=== PATIENT | male | born 1940 | race Caucasian/White ===

== ENCOUNTER 2016-10-26 11:22 | Emergency (ER) | payer MEDICARE ==
[~2016-10-26] VITALS: Ht 154.9 cm; Wt 77.5 kg
[~2016-10-26 11:22] MED LIST: AMOX-291 PO; ASPI-621 PO; ATOR10TA9 PO; FINA5TAB4 PO; GLYC1SUP71 PR; ISOS30TA8 PO; LOSA50TA6 PO; OXYC-302 PO; PHEN-418 PO; SULF1TAB3 PO; [UNRECOGNIZED DRUG - REMARK] PO
[2016-10-26 11:35] VITALS: BP 155/81
[2016-10-26] MEDS ORDERED: KETOROLAC 30 MG/1 ML IM ONE (12:00)
[2016-10-26 12:07] LABS: HEMATOCRIT 37.4 % (39.2-51.8); HEMOGLOBIN 12.8 g/dL (13.7-18.0); WHITE BLOOD COUNT 7.8 x10^3/uL (3.4-10)
[2016-10-26 12:19] LABS: BLOOD UREA NITROGEN 13 mg/dL (7-18)
[2016-10-26] MEDS ORDERED: KETOROLAC 30 MG/1 ML ONE (12:29)
== END 2016-10-26 13:20 | disposition home or self-care (01) ==
LOC: ED 13:16
DX: M25.532 Pain in left wrist (principal); R73.9 Hyperglycemia, unspecified
CPT/HCPCS: 29125; 36415; 73110; 80048; 82040; 84550; 85025; 96372; 99285; J1885

== ENCOUNTER 2018-10-22 08:52 | Day surgery (SDC) | payer MEDICARE ==
[~2018-10-22] VITALS: Ht 154.9 cm; Wt 70.2 kg
[2018-10-22 10:11] VITALS: BP 147/81
== END 2018-10-22 14:15 | disposition home or self-care (01) ==
LOC: OUT 08:52
PROVIDERS: ATTEND Internal Medicine
DX: K64.8 Other hemorrhoids (principal); K62.7 Radiation proctitis; I78.1 Nevus, non-neoplastic; I10 Essential (primary) hypertension; J45.909 Unspecified asthma, uncomplicated; Z85.46 Personal history of malignant neoplasm of prostate; Z88.5 Allergy status to narcotic agent
CPT/HCPCS: 45350; 93005; J2704; J3010; J7120

== ENCOUNTER 2019-05-02 15:58 | Observation (INO) | payer MEDICARE ==
[~2019-05-02] VITALS: Ht 154.9 cm; Wt 72.8 kg
[~2019-05-02 15:58] MED LIST changes: -ASPI-621 PO; +ASPI81TA45 PO; +LOSA50TA14 PO; -LOSA50TA6 PO; +OMEP-110 PO; +OXYB10TA26 PO; +SULF-169 PO; -SULF1TAB3 PO; +VITAMIN C PO
[2019-05-02] MEDS ORDERED: SODIUM CHLORIDE 0.9% 1,000ML IVBOLUS ONE ×2 (16:30→18:00)
[2019-05-02] MEDS ORDERED: SODIUM CHLORIDE FLUSH 10ML SYR IVF ONE (16:30)
[2019-05-02 16:33] LABS: BASOPHILS # (AUTO) 0.02 x10^3/uL (0-0.1); BASOPHILS % (AUTO) 0 % (0-1); EOSINOPHILS # (AUTO) 0.11 x10^3/uL (0-0.4); EOSINOPHILS % (AUTO) 1 % (1-7); LYMPHOCYTES # (AUTO) 2.68 x10^3/uL (1-3.4); LYMPHOCYTES % (AUTO) 32 % (22-44); MD NO; MEAN CORPUSCULAR HEMOGLOBIN 34.2 pg (27.5-34.5); MEAN CORPUSCULAR HGB CONC 34.2 g/dL (33.2-36.2); MEAN CORPUSCULAR VOLUME 99.9 fL (81-97); MEAN PLATELET VOLUME 8.3 fL (7.4-10.4); MONOCYTES # (AUTO) 0.52 x10^3/uL (0.2-0.8); MONOCYTES % (AUTO) 6 % (2-9); NEUTROPHILS # (AUTO) 4.96 x10^3/uL (1.8-6.8); NEUTROPHILS % (AUTO) 60 % (42-75); PLATELET COUNT 194 x10^3/uL (130-400); RED BLOOD COUNT 3.96 x10^6/uL (4.38-5.82)
[2019-05-02 16:40] LABS: ALANINE AMINOTRANSFERASE 66 U/L (12-78); ALBUMIN 3.8 g/dL (3.4-5.0); ANION GAP 8 mmol/L (5-15); CHLORIDE 100 mmol/L (98-107); CREATININE 1.29 mg/dL (0.7-1.3)
[2019-05-02 16:43] LABS: ALKALINE PHOSPHATASE 133 U/L (45-117); BILIRUBIN,TOTAL 1.5 mg/dL (0.2-1.0); TOTAL PROTEIN 8.4 g/dL (6.4-8.2)
[2019-05-02 16:56] LABS: ACETONE, SERUM Negative (Negative)
--- NOTE | 2019-05-02 17:06 | NUR ---
PT RESTING IN BED. NO SIGNS OF DISTRESS, BREATHING EVEN AND UNLABORED.
[2019-05-02] MEDS ORDERED: ATOR40TA78 PO (17:25)
[2019-05-02] MEDS ORDERED: LOSA25TA25 PO (17:25)
[2019-05-02] MEDS ORDERED: METO25TA91 PO (17:25)
[2019-05-02] MEDS ORDERED: MIRA50TA PO (17:25)
[2019-05-02] MEDS ORDERED: MEGE20TA3 PO (17:25)
[2019-05-02] MEDS ORDERED: [UNRECOGNIZED DRUG - OTHER] (17:26)
[2019-05-02 17:40] LABS: MICROSCOPIC AUTO
[2019-05-02 18:08] LABS: CULTURE INDICATED? NO
--- NOTE | 2019-05-02 18:10 | NUR ---
Pt in bed with heater hose, at bedside. Call light within reach. 2nd L of NS running.
--- NOTE | 2019-05-02 18:31 | NUR ---
PT IN BED, RESTING COMFORTABLY.
--- NOTE | 2019-05-02 19:07 | NUR ---
REPORT FROM RJ KHAN
--- NOTE | 2019-05-02 19:57 | NUR ---
FINGERSTICK GLUCOSE [id number]
[2019-05-02] MEDS ORDERED: INSULIN SINGLE DOSE, ER ONE (20:18)
--- NOTE | 2019-05-02 20:20 | NUR ---
AT BEDSIDE FOR REASSESSMENT.
[2019-05-02] MEDS ORDERED: INSULIN REGULAR 100 UNITS/ML, 3ML VIAL SQ-INSULIN ONE (20:30)
[2019-05-02] MEDS ORDERED: BISACODYL 10 MG SUPP PR PRN (21:30)
[2019-05-02] MEDS ORDERED: POLYETHYLENE GLYCOL 17 GM PACKET PO PRN (21:30)
[2019-05-02] MEDS ORDERED: ACETAMINOPHEN 325 MG TABLET PO PRN (21:30)
--- NOTE | 2019-05-02 22:00 | NUR ---
REPORT TO FLOOR RN ALL QUESTIONS ADDRESSED PT READY FOR TRANSFER TO FLOOR
[2019-05-02] MEDS: SODIUM CHLORIDE 0.9% 1,000 ML IV SCH (22:38)
[2019-05-02 22:58] VITALS: BP 148/80
[2019-05-02] MEDS: INSULIN LISPRO 100 UNITS/ML, PEN SQ-INSULIN SCH (23:34)
[2019-05-03 02:15] VITALS: BP 126/57
[2019-05-03] MEDS: SODIUM CHLORIDE 0.9% 1,000 ML IV SCH (05:53)
[2019-05-03 06:12] LABS: ANION GAP 8 mmol/L (5-15); CALCIUM 8.1 mg/dL (8.5-10.1); CHLORIDE 112 mmol/L (98-107)
[2019-05-03 06:14] LABS: CREATININE 0.87 mg/dL (0.7-1.3)
[2019-05-03 07:00] VITALS: BP 149/68
[2019-05-03] MEDS: LOSARTAN 25MG TABLET PO SCH (08:05)
[2019-05-03] MEDS: INSULIN LISPRO 100 UNITS/ML, PEN SQ-INSULIN SCH ×4 (08:05→20:13)
[2019-05-03] MEDS: Mirabegron** (Myrbetriq**) 50 MG) PO SCH (08:05)
[2019-05-03] MEDS: OMEPRAZOLE 20 MG CAPSULE.DR PO SCH ×2 (08:06→20:12)
[2019-05-03] MEDS: SENNA/DOCUSATE TABLET PO SCH (08:08)
[2019-05-03] MEDS: MEGESTROL 40MG TABLET PO SCH ×2 (08:09→20:12)
[2019-05-03] MEDS: METOPROLOL SUCCINATE 25 MG TAB.ER.24H PO SCH (08:51)
[2019-05-03] MEDS: metFORMIN 850 MG TABLET PO SCH ×2 (10:02→16:58)
[2019-05-03] MEDS ORDERED: POTASSIUM CHLORIDE 20 MEQ TAB.ER.PRT PO ONE (11:00)
[2019-05-03 15:08] VITALS: BP 137/71
[2019-05-03 20:17] VITALS: BP 143/76
[2019-05-03] MEDS ORDERED: INSULIN GLARGINE 100 UNITS/ML, PEN SQ-INSULIN SCH (21:00)
[2019-05-03] MEDS ORDERED: ATORVASTATIN 40 MG TABLET PO SCH (21:00)
[2019-05-04 01:17] VITALS: BP 139/55
[2019-05-04 07:24] LABS: ALANINE AMINOTRANSFERASE 50 U/L (12-78); ANION GAP 7 mmol/L (5-15); CALCIUM 8.7 mg/dL (8.5-10.1); CHLORIDE 111 mmol/L (98-107); CREATININE 0.92 mg/dL (0.7-1.3)
[2019-05-04 07:26] LABS: ALKALINE PHOSPHATASE 90 U/L (45-117); TOTAL PROTEIN 6.9 g/dL (6.4-8.2)
[2019-05-04] MEDS: OMEPRAZOLE 20 MG CAPSULE.DR PO SCH (08:07)
[2019-05-04] MEDS: INSULIN LISPRO 100 UNITS/ML, PEN SQ-INSULIN SCH ×2 (08:07→12:43)
[2019-05-04] MEDS: METOPROLOL SUCCINATE 25 MG TAB.ER.24H PO SCH (08:07)
[2019-05-04] MEDS: SENNA/DOCUSATE TABLET PO SCH (08:08)
[2019-05-04] MEDS: LOSARTAN 25MG TABLET PO SCH (08:09)
[2019-05-04] MEDS: Mirabegron** (Myrbetriq**) 50 MG) PO SCH (08:09)
[2019-05-04] MEDS: MEGESTROL 40MG TABLET PO SCH (08:09)
[2019-05-04] MEDS: metFORMIN 850 MG TABLET PO SCH (08:10)
[2019-05-04 08:48] VITALS: BP 148/67
[2019-05-04] MEDS ORDERED: METF850T PO (11:14)
[2019-05-04] MEDS ORDERED: GLIP5TAB10 PO (11:14)
== END 2019-05-04 15:26 | disposition home or self-care (01) ==
LOC: ED 21:14 → EDIP 21:15 → INTOOBSV 21:15 → 3N 22:26
PROVIDERS: ADMIT Family Medicine; ATTEND Family Medicine
DX: E11.00 Type 2 diabetes mellitus with hyperosmolarity without nonketotic hyperglycemic-hyperosmolar coma (NKHHC) (principal); E87.1 Hypo-osmolality and hyponatremia; C61 Malignant neoplasm of prostate; D75.89 Other specified diseases of blood and blood-forming organs; E11.22 Type 2 diabetes mellitus with diabetic chronic kidney disease; E11.65 Type 2 diabetes mellitus with hyperglycemia; E78.5 Hyperlipidemia, unspecified; F32.9 Major depressive disorder, single episode, unspecified; G89.29 Other chronic pain; I12.9 Hypertensive chronic kidney disease with stage 1 through stage 4 chronic kidney disease, or unspecified chronic kidney disease; N18.9 Chronic kidney disease, unspecified; N40.0 Benign prostatic hyperplasia without lower urinary tract symptoms
CPT/HCPCS: 36415; 80048; 80053; 81001; 82010; 82607; 82803; 82962; 83036; 83930; 84443; 85025; 96360; 96361; 99284; G0378; J1815; J7030

== ENCOUNTER → 2020-04-27 | Outpatient (CLI) | payer MEDICARE ==
[~2020-04-27] MED LIST changes: +ATOR40TA78 PO; +GLIP5TAB10 PO; +LOSA25TA25 PO; +MEGE20TA3 PO; +METF850T PO; +METO25TA91 PO; +MIRA50TA PO; -OXYC-302 PO; +OXYC1TAB14 PO; +[UNRECOGNIZED DRUG - OTHER]
== END | disposition home or self-care (01) ==
LOC: CFH 06:45
PROVIDERS: ATTEND Internal Medicine Cardiovascular Disease
DX: I08.0 Rheumatic disorders of both mitral and aortic valves (principal); R06.02 Shortness of breath; I10 Essential (primary) hypertension; I25.10 Atherosclerotic heart disease of native coronary artery without angina pectoris
CPT/HCPCS: 78452; 93017; 93306; 93356; A9502